=== PATIENT | female | born 1950 | race Caucasian/White ===

== ENCOUNTER 2017-01-11 22:56 | Observation (INO) | payer OTHER ==
[~2017-01-11] VITALS: Ht 170.2 cm; Wt 90.2 kg
[2017-01-11 23:15] LABS: HEMATOCRIT 40.7 % (37-47); MEAN CELL VOLUME 90.2 fL (80-100); MEAN CORPUSCULAR HEMOGLOBIN 30.6 pg (25-34); MEAN CORPUSCULAR HGB CONC 33.9 g/dl (32-36); MEAN PLATELET VOLUME 9.9 fL (7.4-10.4); PLATELET COUNT 296 K/uL (130-400); RED BLOOD COUNT 4.51 M/uL (4.2-5.4); WHITE BLOOD COUNT 7.61 K/uL (4.8-10.8)
--- NOTE | 2017-01-11 23:22 | EMERGENCY ROOM VISIT NOTE ---
History Report prepared by Prema: Hank Dimas Under the Supervision of: Dr. Audelia Ellison D.O. First contact with patient: 23:00 Stated Complaint: DIZZY/CARDIAC ASSESSMENT History of Present Illness The patient is a 66 year old female who presents to the Emergency Room via EMS with complaints of constant dizziness starting around 1800 today. Per the EMS, the patient was at the [facility] today, and she became very dizzy, and she was hypertensive. The patient has a history of arthritis and GERD, and she is from [place]. The patient is denying any chest pain or shortness of breath today or over the past few days. The patient states that she has not been drinking tonight, and she is currently a smoker. She states that her dad has a pacemaker, and her mom had a leaky valve, though there is no family history of heart attacks or catheterizations. The patient states that she has been having some chronic leg swelling due to foot surgery, and she has a history of cataract removal. Additionally, the patient states that she drove here from [place], and she has never had a history with dehydration or issues with her blood sugar. Source of History: patient, EMS Onset: 1800 tonight Position: other (global) Quality: other (dizziness) Timing: constant Associated Symptoms: No chest pain, No SOB Note: Associated symptoms: Hypertensive Review of Systems See HPI for pertinent positives & negatives. A total of 10 systems reviewed and were otherwise negative. Past Medical & Surgical Medical Problems: (1) Arthritis (2) Dizziness (3) GERD (gastroesophageal reflux disease) (4) ST segment changes on electrocardiogram Family History Heart valve abnormality Pacemaker Social History Marital Status: Housing Status: lives with family Occupation Status: retired Current/Historical Medications Scheduled PRN Lansoprazole (Prevacid), 15 MG PO DAILY PRN for GI Upset Naproxen (Naprosyn), 500 MG PO BID PRN for Pain Allergies Coded Allergies: No Known Allergies (Unverified , 01/12/17) Physical Exam Vital Signs Date Time Temp Pulse Resp B/P (MAP) Pulse Ox O2 Delivery O2 Flow Rate FiO2 01/12/17 00:11 71 18 177/59 96 Room Air 01/11/17 23:05 36.6 84 22 173/76 98 Room Air 01/11/17 23:05 Room Air 01/11/17 23:05 Room Air 01/11/17 23:05 78 Physical Exam HEENT: Head - normocephalic and atraumatic Pupils are equal, round, and reactive to light. Extraocular eye muscles are intact, and sclera are anicteric. There is no obvious lateral nystagmus. nose - moist nasal mucosa without discharge. Mouth - moist buccal mucosa. Oropharynx is nonerythematous and there is no tonsillar exudate or edema noted. Neck: Supple; no JVD, nuchal rigidity, cervical lymphadenopathy, or auscultated bruits. Heart: Regular rate and rhythm. There is a normal S1 and S2 with no murmurs, clicks, or gallops appreciated. Lungs: Clear to auscultation bilaterally with no wheezes, rales, or rhonchi. Abdomen: Soft, completely nontender, nondistended, with good bowel sounds. There are no palpable pulsatile masses or hepatosplenomegaly. There is no guarding, rigidity, or rebound noted. Extremities: Trace pedal edema bilaterally. No evidence of cyanosis or clubbing. There are easily palpable peripheral pulses. Skin: Slightly diaphoretic. Warm with good turgor and no rashes. Medical Decision & Procedures ER Provider Diagnostic Interpretation: X-ray results as stated below per interpretation by me: 2 view chest X-ray showed a questionable right sided pleural effusion. Radiology results as stated below per my review and the radiologist's interpretation: CT HEAD: No acute intracranial process. Minimal Sinus disease. Radiologist: Clare Gibson MD Laboratory Results 01/11/17 22:32 01/11/17 22:32 Test 01/11/17 22:32 01/11/17 23:15 Red Blood Count 4.51 M/uL (4.2-5.4) Mean Corpuscular Volume 90.2 fL (80-100) Mean Corpuscular Hemoglobin 30.6 pg (25-34) Mean Corpuscular Hemoglobin Concent 33.9 g/dl (32-36) RDW Standard Deviation 42.0 fL (36.4-46.3) RDW Coefficient of Variation 12.8 % (11.5-14.5) Mean Platelet Volume 9.9 fL (7.4-10.4) Anion Gap 5.0 mmol/L (3-11) Estimated GFR () 60.2 Estimated GFR (Non- 51.9 BUN/Creatinine Ratio 20.9 (10-20) Calcium Level 8.9 mg/dl (8.5-10.1) Total Bilirubin 0.5 mg/dl (0.2-1) Aspartate Amino Transf (AST/SGOT) 16 U/L (15-37) Alanine Aminotransferase (ALT/SGPT) 18 U/L (12-78) Alkaline Phosphatase 111 U/L (45-117) Total Creatine Kinase 113 U/L (26-192) Creatine Kinase MB 1.8 ng/ml (0.5-3.6) Creatine Kinase MB Ratio 1.6 (0-3.0) Troponin I < 0.015 ng/ml (0-0.045) Total Protein 7.6 gm/dl (6.4-8.2) Albumin 3.7 gm/dl (3.4-5.0) Globulin 3.9 gm/dl (2.5-4.0) Albumin/Globulin Ratio 0.9 (0.9-2) Thyroid Stimulating Hormone (TSH) 4.530 uIu/ml (0.300-4.500) Urine Color YELLOW Urine Appearance CLEAR (CLEAR) Urine pH 6.0 (4.5-7.5) Urine Specific [place] 1.017 (1.000-1.030) Urine Protein NEG (NEG) Urine Glucose (UA) NEG (NEG) Urine Ketones NEG (NEG) Urine Occult Blood TRACE (NEG) Urine Nitrite NEG (NEG) Urine Bilirubin NEG (NEG) Urine Urobilinogen NEG (NEG) Urine Leukocyte Esterase NEG (NEG) Urine WBC (Auto) 1-5 /hpf (0-5) Urine RBC (Auto) 5-10 /hpf (0-4) Urine Hyaline Casts (Auto) 0 /lpf (0-5) Urine Epithelial Cells (Auto) 20-30 /lpf (0-5) Urine Bacteria (Auto) NEG (NEG) Laboratory results per my review. ECG Indication: other (dizziness) Rate (beats per minute): 71 Rhythm: normal sinus Findings: ST depression (minimal in the inferior and lateral lead), no ectopy Change: Prehospital EKG: Indication: Dizziness. Normal sinus rhythm at [address] Segment depression inferiorly. No ectopy ED Course 2300: The prehospital EKG reviewed. patient was evaluated in room B10. A complete history and physical exam was performed. A twelve-lead EKG was performed here. Laboratory studies percent off. She was observing the manager monitoring and pulse oximeter. Her blood pressure did remain somewhat elevated. 0044: I reevaluated the patient, and she states that she is not dizzy anymore. I discussed her test results, and I told her that she should follow up as an outpatient for her thyroid and the blood in her urine. She is agreeable to the treatment plan. 0102: I discussed the patient's case with Jackie Bunch, and he is going to evaluate the patient for further treatment. Medical Decision The patient is a 66 year old female who presents to the ED with dizziness. Differential diagnosis includes vertigo, cardiac ischemia, dehydration, hypoglycemia, and cardiac dysrhythmia. Lab Results showed No leukocytosis, stable H&H, BUN of 23, creatinine of 1.1, glucose 131, TSH 4.5, normal LFTs, cardiac biomarkers are negative, and her urine had trace blood. The patient has sudden onset of dizziness while at the [facility] today. I was concerned as the patient had some ST segment depression inferiorly and laterally during this episode of hypertension and dizziness. Once the patient arrived here in the emergency department, the EKG changes had almost resolved entirely. This was concerning for ischemia. We have no previous EKG for comparison. I discussed the case with the [facility] hospitalist and they will evaluate for further management. Medication Reconcilliation Current Medication List: was personally reviewed by me Blood Pressure Screening Patient's blood pressure: Elevated blood pressure Will be managed by the hospitalist Consults Time Called: 49 Consulting Physician: Jackie Bunch Returned Call: 0102 I discussed the patient's case with Dr. Martinez, Jackie, and he is going to evaluate the patient for further treatment. Impression Primary Impression: Dizziness Additional Impressions: Acute electrocardiogram changes Uncontrolled hypertension Scribe Attestation The scribe's documentation has been prepared under my direction and personally reviewed by me in its entirety. I confirm that the note above accurately reflects all work, treatment, procedures, and medical decision making performed by me. Departure Information Dispostion Being Evaluated By Hospitalist Problem Qualifiers
[2017-01-11 23:34] LABS: ALT/SGPT 18 U/L (12-78); BLOOD UREA NITROGEN 23 mg/dl (7-18); BUN/CREATININE RATIO 20.9 (10-20); CALCIUM 8.9 mg/dl (8.5-10.1); CARBON DIOXIDE 29 mmol/L (21-32); CHLORIDE 106 mmol/L (98-107); GLUCOSE 131 mg/dl (70-99); SODIUM 140 mmol/L (136-145)
[2017-01-11 23:45] LABS: ALB/GLOB RATIO 0.9 (0.9-2); ALKALINE PHOSPHATASE 111 U/L (45-117); AST/SGOT 16 U/L (15-37); CKMB/CK RATIO 1.6 (0-3.0)
[2017-01-12] MEDS ORDERED: NAPR-1169 PO (00:08)
[2017-01-12 00:09] LABS: URINE APPEARANCE CLEAR (CLEAR); URINE BILIRUBIN NEG (NEG); URINE COLOR YELLOW; URINE EPITHELIAL CELL AUTO 20-30 /lpf (0-5); URINE NITRITE NEG (NEG); URINE SPECIFIC GRAVITY 1.017 (1.000-1.030); UROBILINOGEN NEG (NEG)
[2017-01-12] MEDS ORDERED: LANS15CA15 PO (00:09)
[2017-01-12 00:16] LABS: MANUAL MICROSCOPIC REQUIRED? NO; REVIEW REQ? NO
--- NOTE | 2017-01-12 01:17 | History and Physical ---
History & Physical Date & Time of Service: Jan 12, 2017 at 01:07 Chief Complaint: Dizzy/Cardiac Assessment Primary Care Physician: No Doctor, Assigned History of Present Illness Source: patient, family The patients presents to the ED brought in by daughter. The patient was at the [facility]. She noticed earlier in the evening feeling lightheaded and dizzy and unsteady on her feet. Daughter notes she appeared flushed and diaphoretic. She was sitting when she noted the symptoms come on and they worsened when she stook up. Sister had a BP machine on-site which read as "error", they went to EMS services who did and EKG showing inferior and lateral ST segment depression. As such she was brought to the ED by daughter. The patient denies chest pain, palpitations, resting or exertional dyspnea, lightheadedness/syncope, orthopnea, or lower extremity edema. There is no shortness of coughing or wheezing. The patient states that she is diligent about staying hydrated. She drank adequate this evening. The patient denies fevers, chills, night sweats. The patient denies nausea, vomiting diarrhea or constipation. This has never happened to her before. No history of CAD. No HTN, Diabetes or hyperlipidemia. Smokes 1 pack cigarettes per day. Drinks occasional glass of wine. 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 Father had a pacemaker. Mother had valvular heart. Family History Father had a pacemaker. Mother with valvular heart disease. Social History Smoking Status: Current Every Day Smoker Smokeless Tobacco Use: No Alcohol Use: occasionally Drug Use: none Marital Status: Housing status: lives alone Occupational Status: retired Immunizations History of Influenza Vaccine: Unknown History of Tetanus Vaccine?: Unknown History of Pneumococcal: Unknown History of Hepatitis B Vaccine: Unknown Multi-Drug Resistant Organisms History of MDRO: No Allergies Coded Allergies: No Known Allergies (Unverified , 01/12/17) Home Medications Scheduled PRN Lansoprazole (Prevacid), 15 MG PO DAILY PRN for GI Upset Naproxen (Naprosyn), 500 MG PO BID PRN for Pain Review of Systems A 10 point review of systems was negative unless stated above. Physical Exam Vital Signs Date Time Temp Pulse Resp B/P (MAP) Pulse Ox O2 Delivery O2 Flow Rate FiO2 01/12/17 00:11 71 18 177/59 96 Room Air 01/11/17 23:05 36.6 84 22 173/76 98 Room Air 01/11/17 23:05 Room Air 01/11/17 23:05 Room Air 01/11/17 23:05 78 General Appearance: WD/WN, no apparent distress Head: normocephalic, atraumatic Eyes: normal inspection, EOMI ENT: hearing grossly normal, pharynx normal Neck: supple, no adenopathy, no JVD Respiratory/Chest: lungs clear, no respiratory distress Cardiovascular: regular rate, rhythm, no gallop, no murmur Abdomen/GI: normal bowel sounds, non tender, soft Back: no CVA tenderness, no muscle spasm Extremities/Musculoskelatal: no calf tenderness, no pedal edema, + pertinent finding (minimal ROM in ankles) Neurologic/Psych: alert, normal mood/affect, oriented x 3 Skin: normal color, warm/dry, no rash Lymphatic: no adenopathy Diagnostics Laboratory Results Results Past 24 Hours Test 01/11/17 22:32 01/11/17 23:15 Range/Units White Blood Count 7.61 4.8-10.8 K/uL Red Blood Count 4.51 4.2-5.4 M/uL Hemoglobin 13.8 12.0-16.0 g/dL Hematocrit 40.7 37-47 % Mean Corpuscular Volume 90.2 80-100 fL Mean Corpuscular Hemoglobin 30.6 25-34 pg Mean Corpuscular Hemoglobin Concent 33.9 32-36 g/dl RDW Standard Deviation 42.0 36.4-46.3 fL RDW Coefficient of Variation 12.8 11.5-14.5 % Platelet Count 296 130-400 K/uL Mean Platelet Volume 9.9 7.4-10.4 fL Sodium Level 140 136-145 mmol/L Potassium Level 4.0 3.5-5.1 mmol/L Chloride Level 106 98-107 mmol/L Carbon Dioxide Level 29 21-32 mmol/L Anion Gap 5.0 3-11 mmol/L Blood Urea Nitrogen 23 7-18 mg/dl Creatinine 1.10 0.60-1.20 mg/dl Estimated GFR () 60.2 Estimated GFR (Non- 51.9 BUN/Creatinine Ratio 20.9 10-20 Random Glucose 131 70-99 mg/dl Calcium Level 8.9 8.5-10.1 mg/dl Total Bilirubin 0.5 0.2-1 mg/dl Aspartate Amino Transf (AST/SGOT) 16 15-37 U/L Alanine Aminotransferase (ALT/SGPT) 18 12-78 U/L Alkaline Phosphatase 111 45-117 U/L Total Creatine Kinase 113 26-192 U/L Creatine Kinase MB 1.8 0.5-3.6 ng/ml Creatine Kinase MB Ratio 1.6 0-3.0 Troponin I < 0.015 0-0.045 ng/ml Total Protein 7.6 6.4-8.2 gm/dl Albumin 3.7 3.4-5.0 gm/dl Globulin 3.9 2.5-4.0 gm/dl Albumin/Globulin Ratio 0.9 0.9-2 Thyroid Stimulating Hormone (TSH) 4.530 0.300-4.500 uIu/ml Urine Color YELLOW Urine Appearance CLEAR CLEAR Urine pH 6.0 4.5-7.5 Urine Specific [place] 1.017 1.000-1.030 Urine Protein NEG NEG Urine Glucose (UA) NEG NEG Urine Ketones NEG NEG Urine Occult Blood TRACE NEG Urine Nitrite NEG NEG Urine Bilirubin NEG NEG Urine Urobilinogen NEG NEG Urine Leukocyte Esterase NEG NEG Urine WBC (Auto) 1-5 0-5 /hpf Urine RBC (Auto) 5-10 0-4 /hpf Urine Hyaline Casts (Auto) 0 0-5 /lpf Urine Epithelial Cells (Auto) 20-30 0-5 /lpf Urine Bacteria (Auto) NEG NEG CXR normal EKG EMS EKG showing inferior/lateral ST segment depression There is no previous EKG for comparison Impression Assessment and Plan 66 year old with no known history of CAD, presenting with lightheadedness and diaphoresis. Her risk factors are age and smoking. She has not had screening for other co-morbid conditions. Our plan for her is as follows Inferior/Later ST segment depression - Noted by EMS; EKG. Changes resolved on arrival to ED - Troponin x 1 negative; trend q 6 hours - Monitor in telemetry - EKG and Nitro SL with chest pain - Will order Dobutamine stress test as patient is unable to walk briskly due to ankle issues - Screen for co-morbidities: HbA1c and fasting lipid profile Lightheadedness/Dizziness - Check orthostatics with vital signs - Will re-hydrate gently overnight Tobacco Abuse - Nicotine Patch - Smoking Cessation Educator DVT Prophylaxis - SCD KneePRISCILLA - Lovenox 40 mg s.c. daily Code Status - Level I Full Code Disposition - Telemetry - OT and PT evaluations Attending Addendum: I have physically seen and examined this patient, have supervised the medical residents activities, and agree with the H&P as noted above with the following exceptions as noted. The patient reports that while sitting at the range here today, when she went to stand she became very dizzy, and this dizziness persisted intermittently throughout the day. She was then taken to EMS services there, where an EKG was performed showing minor inferior lateral ST segment changes, and her daughter then brought her to the emergency department for assessment. The patient's only symptom is that of dizziness. The patient denies chest pain, palpitations, shortness of breath, cough, lower extremity swelling, vision change, hearing change, sore throat, fevers, chills, sweats, weight change, fatigue, nausea, vomiting, diarrhea or constipation, abdominal pain, pelvic pain, blood in urine or stool, dysuria, urinary frequency or urgency, headache, memory loss, rash, abnormal bruising or bleeding, imbalance, focal or generalized weakness, numbness or tingling in arms or legs, generalized arthralgias or myalgias, back or neck pain, night sweats. The review of systems is otherwise negative other than for that already noted above, and at least 10 systems have been reviewed. The patient is awake, well-developed and adequately nourished, alert and oriented 3, normocephalic and atraumatic, lying in bed and in no acute distress. HEENT--PERRL, EOMI, mucous membranes and oropharynx dry. Neck--supple, no JVD or bruits, thyroid normal, trachea midline, no adenopathy. Heart--normal S1 and S2, no extra beats, no murmurs, rubs or gallops. Lungs--clear bilaterally with good air movement, no respiratory distress, no accessory muscle use. Abdomen--normal bowel sounds and soft, nontender and nondistended, no hernias or masses, no organomegaly. Extremities--no cyanosis, clubbing or edema. There are good distal pulses b/l. Dermatologic--normal skin turgor, normal color, warm and dry, no abnormal lymph nodes, no rash. Neurologic--cranial nerves II through XII grossly intact, motor and sensory examination normal. Rheumatologic--decreased range of motion of ankles due to previous surgery. Psychiatric--normal affect. Assessment and Plan: 1. Dizziness/nonspecific ST- T changes on EKG--The patient will be admitted to telemetry for serial cardiac enzymes, cardiac rhythm monitoring and a 2-D echocardiogram with Dopplers. We ordered a CT of the head without contrast, which showed minimal sinus disease. Check a fasting lipid profile and hemoglobin A1c. Start aspirin 81 mg chewable daily. If the above workup is negative, she should have a dobutamine stress echo prior to discharge. Place on IV fluids normal saline with KCl 20 mEq 100 mils per hour to reverse mild dehydration. Encouraged tobacco cessation, and we'll place on nicotine patch. Level of Care Telemetry Advanced Directives Existing Advance Directive: No Existing Living Will: No Existing Power of Cleaner Greaser: No Resuscitation Status FULL RESUSCITATION VTE Prophylaxis Risk Level: Low Given or contraindicated: Enoxaparin (Lovenox)SQ Social Service Consult None Apply
[2017-01-12] MEDS ORDERED: ALUMINUM/MAGNESIUM/SIMETH (MAALOX MAX) 30 ML UDC PO PRN (01:30)
[2017-01-12] MEDS ORDERED: ONDANSETRON INJ 2 MG/ML 2 ML VIAL IV PRN (01:30)
[2017-01-12] MEDS ORDERED: POLYETHYLENE (MIRALAX) 17 GM PACK PO PRN (01:30)
[2017-01-12] MEDS ORDERED: NITROGLYCERIN 0.4 MG SL PER TAB CHARGE SL PRN (01:30)
[2017-01-12] MEDS ORDERED: MAGNESIUM HYDROXIDE SUSP 30 ML UDC PO PRN (01:30)
[2017-01-12] MEDS ORDERED: MoRPHine SULFATE 2 MG/ML CARP IV PRN (01:30)
[2017-01-12] MEDS ORDERED: ACETAMINOPHEN 325 MG TAB PO PRN (01:30)
[2017-01-12] MEDS ORDERED: PANTOprazole SOD 40 MG TAB PO PRN (02:00)
[2017-01-12 02:53] VITALS: BP 170/87; PULSE 71; TEMP 36.7; O2SAT 95; Ht 170.2 cm; Wt 90.2 kg
[2017-01-12] MEDS ORDERED: IV FLUIDS COMPLETED PRN (03:15)
[2017-01-12] MEDS: SODIUM CHLORIDE 0.9% 1000ML 1,000 ML IV SCH ×2 (03:18→11:00)
[2017-01-12 06:56] LABS: ESTIMATED AVERAGE GLUCOSE 114 mg/dl; HA1C FLAG Normal (Normal)
--- NOTE | 2017-01-12 07:13 | DIAGNOSTIC IMAGING REPORT ---
CT SCAN OF THE BRAIN WITHOUT IV CONTRAST CLINICAL HISTORY: Dizziness. COMPARISON STUDY: No priors. TECHNIQUE: Unenhanced axial CT scan of the brain is performed from the vertex to the skull base. CT DOSE: 537.48 mGy.cm FINDINGS: Brain parenchyma: There is minimal periventricular microangiopathic disease. A chronic lacunar infarct is noted in the left basal ganglia. There is no hemorrhage, mass effect, or evidence of acute territorial ischemia by CT criteria. [place]-white matter is preserved. No extra-axial fluid collection is seen. Ventricles, sulci, cisterns: Normal in configuration. Intracranial vasculature: There is atherosclerotic calcification of the cavernous carotid arteries. Calvarium: Unremarkable. Sinuses and mastoids: The visualized paranasal sinuses are clear. The mastoid air cells are well pneumatized. Orbits: The bony orbits are grossly intact. There are bilateral ocular lens implants. IMPRESSION: There is no hemorrhage, mass effect, or evidence of acute territorial ischemia by CT criteria. Electronically signed by: Kyler Stark M.D. 01/12/2017 7:11 AM Dictated Date/Time: 01/12/2017 7:09 AM
[2017-01-12 07:16] VITALS: BP 137/81; PULSE 68; TEMP 36.6; O2SAT 95
--- NOTE | 2017-01-12 07:38 | DIAGNOSTIC IMAGING REPORT ---
TWO VIEW CHEST CLINICAL HISTORY: Dizziness. FINDINGS: PA and lateral chest radiographs are obtained. No prior studies are available for comparison at the time of dictation. The cardiomediastinal silhouette is unremarkable. The lungs are hyperinflated and hyperlucent with flattening the diaphragm and increased retrosternal clear space. The appearance suggests obstructive physiology. Nonspecific interstitial thickening is noted. No airspace consolidation or pleural effusion is identified. There is no pneumothorax. The skeletal structures are osteopenic. Degenerative change is noted throughout the thoracic spine. IMPRESSION: Findings suggest obstructive physiology. There is no airspace consolidation or pleural effusion. Electronically signed by: Kyler Stark M.D. 01/12/2017 7:37 AM Dictated Date/Time: 01/12/2017 7:36 AM
[2017-01-12 07:40] LABS: INR 0.9 (0.9-1.1)
[2017-01-12 07:56] LABS: BLOOD UREA NITROGEN 19 mg/dl (7-18); BUN/CREATININE RATIO 21.9 (10-20); CALCIUM 8.9 mg/dl (8.5-10.1); CARBON DIOXIDE 29 mmol/L (21-32); CHLORIDE 111 mmol/L (98-107); CREATININE 0.85 mg/dl (0.60-1.20); GLUCOSE 105 mg/dl (70-99); POTASSIUM 3.8 mmol/L (3.5-5.1); SODIUM 143 mmol/L (136-145)
[2017-01-12] MEDS ORDERED: PNEUMOCOCCAL POLYSACCHARIDES 25 MCG/0.5 ML VIAL/SYR IM. ONE (08:00)
[2017-01-12] MEDS ORDERED: PNEUMOCOCCAL ADMINISTRATION CHARGE ONE (08:00)
[2017-01-12 08:01] LABS: CHOLESTEROL 186 mg/dl (0-200); CHOLESTEROL/HDL RATIO 4.9; CKMB/CK RATIO 1.8 (0-3.0); HDL CHOLESTEROL 38 mg/dl; LDL CHOLESTEROL CALCULATED 124 mg/dl; TRIGLYCERIDES 119 mg/dl (0-150); VERY LOW DENSITY LIPOPROT CALC 24 mg/dl
[2017-01-12] MEDS ORDERED: ENOXAPARIN 40 MG/0.4 ML SYR SC SCH (09:00)
[2017-01-12 11:47] VITALS: BP 144/79; PULSE 73; TEMP 36.9; O2SAT 96
[2017-01-12] MEDS ORDERED: DOBUTamine HCL 12.5 MG/ML 20 ML VIAL ONE (12:30)
[2017-01-12] MEDS ORDERED: ATROPINE SULFATE 0.1 MG/ML 5ML SYR ONE (12:30)
[2017-01-12] MEDS ORDERED: METOPROLOL TARTRATE 1 MG/ML VIAL ONE (12:30)
[2017-01-12 13:57] LABS: CKMB/CK RATIO 1.7 (0-3.0)
--- NOTE | 2017-01-12 14:30 | Discharge Instructions ---
Discharge Instructions Date of Service Jan 12, 2017. Admission Reason for Admission: Dizziness, St Segment Changes On Electrocardiogram Discharge Discharge Diagnosis / Problem: Dizziness with abnormal EKG, rule out for acute coronary syndrome Discharge Goals Goal(s): Improve function Activity Recommendations Activity Limitations: resume your previous activity . Instructions / Follow-Up Instructions / Follow-Up Rayshawn Carmen were admitted to [facility] to investigate potential causes for dizzyness you experienced yesterday. The workup we did was centered around making sure your heart is healthy. We did an EKG, took some blood test and did an Echocardiogram. All our test were normal. Other causes for dizzyness could be dehydration, which is possible in your case. I would advice you to follow up with you primary care doctor regarding your blood pressure. Throughout your visit, you blood pressure was high. High blood pressure is what we call a silent killer. You may not have symptoms, but the effects of over time can cause some problems and put you at high risk for heart attacks and stroke. Considering your family history, you are already at a slightly higher risk for cardiac complications. Current Hospital Diet Patient's current hospital diet: AHA Diet (Heart Healthy) Discharge Diet Recommended Diet: Regular Diet, AHA Diet (Heart Healthy) Pending Studies Studies pending at discharge: no Laboratory Results Hemoglobin A1c Test 01/11/17 22:32 Range/Units Estimated Average Glucose 114 mg/dl Hemoglobin A1c 5.6 4.5-5.6 % Lipid Panel Test 01/12/17 06:39 Range/Units Triglycerides Level 119 0-150 mg/dl Cholesterol Level 186 0-200 mg/dl HDL Cholesterol 38 mg/dl Cholesterol/HDL Ratio 4.9 LDL Cholesterol, Calculated 124 mg/dl Medical Emergencies . Who to Call and When: Medical Emergencies: If at any time you feel your situation is an emergency, please call 911 immediately. . Non-Emergent Contact Non-Emergency issues call your: Primary Care Provider . . "Provider Documentation" section prepared by Loyd Salgado. . VTE Core Measure Inpt VTE Proph given/why not?: Enoxaparin (Lovenox)SQ
[2017-01-12 14:45] VITALS: BP 144/79; PULSE 73; TEMP 36.9; O2SAT 96
--- NOTE | 2017-01-12 15:25 | DOBUTAMINE ECHO ---
*NOTICE TO RECEIVING LIBERTARIAN AGENCY This information is strictly Confidential and protected under [place] law. [place] law prohibits you from making any further disclosure of this information unless further disclosure is expressly permitted by the written consent of the person to whom it pertains or is authorized by law. A general authorization for the release of medical or other information is not sufficient for this purpose. Hospital accepts no responsibility if the information is made available to any other person, INCLUDING THE PATIENT. Interpretation Summary * Name: SAUL MARTINS Study Date: 01/12/2017 11:42 AM BP: 160/78 mmHg * Patient Location: C.2T\S\S230\S\2 HR: 101 * : 1950 (M/d/yyyy) Gender: Female Height: 67 in * Age: 66 yrs Ethnicity: CA Weight: 203 lb * Ordering Physician: Sherif Martinez * Referring Physician: Self, Referred * Performed By: Dina Capone RDCS * * Reason For Study: Dizziness with transient ST segment depression anterior/laterally * BSA: 2.0 m2 * -- Conclusions -- * 1. Negative dobutamine stress echocardiogram at 98 percent of the maximum predicted heart rate. * 2. No dobutamine induced chest. * 3. False positive EKG response. * 4. Baseline echocardiogram notes normal left resolves function and mild left hypertrophy. Procedure Details * DOBUTAMINE ECHO, CPT#[id number] * ECHO DOPPLER, CPT #[id number] * ECHO COLOR FLOW, CPT #[id number] Left Ventricle * The left ventricle is normal in size. * There is mild concentric left ventricular hypertrophy. * Ejection Fraction = 55-60%. * Left ventricular systolic function is normal. * Resting wall motion: Normal. Stress wall motion: Appropriate increase in Left ventricular systolic function and decrease in cavity size. No stress induced segmental wall motion abnormalities. Right Ventricle * The right ventricle is grossly normal size. * The right ventricular systolic function is normal as assessed by tricuspid annular plane systolic excursion (TAPSE) (normal >1.5 cm). Atria * The left atrial size is normal. * Right atrial size is normal. * No ASD detected; PFO is not assessed. Mitral Valve * The mitral valve is grossly normal. * There is no mitral valve stenosis. * Significant mitral regurgitation is absent. Tricuspid Valve * The tricuspid valve is not well visualized, but is grossly normal. * Significant tricuspid regurgitation is absent. Aortic Valve * The aortic valve is not well visualized. * The aortic valve opens well. * No aortic regurgitation is present. Pulmonic Valve * The pulmonary valve is not well seen, but the Doppler examination is normal without significant regurgitation or stenosis. Great Vessels * The aortic root is normal size. Pericardium * There is no pericardial effusion. Stress Parameters * Normal baseline electrocardiogram. * There was a maximum 1.5mm ST segment depression. * The stress portion of this study was personally supervised by the undersigned interpreting physician. * Rest heart rate was '101' BPM. * Rest blood pressure was '160/78' * Maximum heart rate achieved was 150 bpm. * Maximum heart rate was 98 % of maximum age-predicted heart rate. * Maximum blood pressure was '195/57' * Maximum Dobutamine infusion rate was '20' mcg/kg/min. * A total of 0.5 mg of intravenous Atropine was used to supplement Dobutamine for heart rate response. * Dobutamine infusion was terminated due to achieving target heart rate * A total of 10 mg of IV Metoprolol was administered to reverse Dobutamine-induced tachycardia. * The patient did not exhibit any symptoms during drug infusion. Left Ventricular Diastolic Function * Diastolic dysfunction, Grade II (pseudonormalization pattern). MMode 2D Measurements and Calculations IVSd 0.97 cm LVIDd 3.7 cm LVIDs 2.6 cm LVPWd 1.2 cm IVS/LVPW 0.84 FS 29.1 % EDV(Teich) 59.0 ml ESV(Teich) 25.6 ml EF(Teich) 56.6 % EDV(cubed) 51.6 ml ESV(cubed) 18.4 ml EF(cubed) 64.3 % LV mass(C)d 123.9 grams LV mass(C)dI 60.9 grams/m\S\2 SV(Teich) 33.4 ml SI(Teich) 16.4 ml/m\S\2 SV(cubed) 33.2 ml SI(cubed) 16.3 ml/m\S\2 Ao root diam 2.7 cm Ao root area 5.8 cm\S\2 ACS 1.9 cm LA dimension 3.1 cm LA/Ao 1.1 LVOT diam 1.9 cm LVOT area 2.8 cm\S\2 LVAd ap4 22.7 cm\S\2 LVLd ap4 7.0 cm EDV(MOD-sp4) 60.2 ml EDV(sp4-el) 62.7 ml LVAs ap4 13.4 cm\S\2 LVLs ap4 5.7 cm ESV(MOD-sp4) 26.4 ml ESV(sp4-el) 26.7 ml EF(MOD-sp4) 56.1 % EF(sp4-el) 57.3 % LVAd ap2 17.8 cm\S\2 LVLd ap2 6.6 cm EDV(MOD-sp2) 39.2 ml EDV(sp2-el) 40.7 ml LVAs ap2 10.2 cm\S\2 LVLs ap2 5.4 cm ESV(MOD-sp2) 15.8 ml ESV(sp2-el) 16.2 ml EF(MOD-sp2) 59.5 % EF(sp2-el) 60.3 % LVLd %diff -4.87 % EDV(MOD-bp) 49.7 ml LVLs %diff -5.73 % ESV(MOD-bp) 21.0 ml EF(MOD-bp) 57.7 % SV(MOD-sp4) 33.8 ml SI(MOD-sp4) 16.6 ml/m\S\2 SV(MOD-sp2) 23.3 ml SI(MOD-sp2) 11.5 ml/m\S\2 SV(MOD-bp) 28.7 ml SI(MOD-bp) 14.1 ml/m\S\2 SV(sp4-el) 36.0 ml SI(sp4-el) 17.7 ml/m\S\2 SV(sp2-el) 24.6 ml SI(sp2-el) 12.1 ml/m\S\2 Doppler Measurements and Calculations MV E max vero 93.8 cm/sec MV A max vero 79.3 cm/sec MV E/A 1.2 MV dec time 0.29 sec Ao V2 max 132.9 cm/sec Ao max PG 7.1 mmHg Ao max PG (full) 3.4 mmHg LEANNE(V,A) 2.0 cm\S\2 LEANNE(V,D) 2.0 cm\S\2 LV V1 max PG 3.6 mmHg LV V1 max 95.4 cm/sec PA V2 max 87.1 cm/sec PA max PG 3.0 mmHg PA acc slope 534.2 cm/sec\S\2 PA acc time 0.13 sec PA pr(Accel) 18.6 mmHg
--- NOTE | 2017-01-12 16:47 | Discharge Summary ---
Discharge Summary Date of Service Jan 12, 2017. (Loyd Salgado M.D.) Discharge Summary Admission Date: Jan 12, 2017 at 01:53 Discharge Date: Jan 12, 2017 Discharge Disposition: Home Principal Diagnosis: Dizzyness with abnormal EKG Immunizations: Have You Had Influenza Vaccine: Unknown History of Tetanus Vaccine?: Unknown History of Pneumococcal: Unknown History of Hepatitis B Vaccine: Unknown (Loyd Salgado M.D.) Medication Reconciliation Continued Medications: Lansoprazole (Prevacid) 15 Mg Cap 15 MG PO DAILY PRN for GI Upset Naproxen (Naprosyn) 500 Mg Tab 500 MG PO BID PRN for Pain, TAB Discharge Exam Review of Systems: Constitutional: No fever, No chills Respiratory: No cough, No sputum, No wheezing, No shortness of breath, No dyspnea on exertion, No dyspnea at rest Cardiovascular: No chest pain, No orthopnea, No PND, No edema Abdomen: No pain, No nausea, No vomiting, No diarrhea, No constipation Musculoskeletal: No swelling, No calf pain Genitourinary - Female: No dysuria, No urinary frequency Physical Exam: General Appearance: WD/WN, no apparent distress Neck: supple, no adenopathy Respiratory/Chest: chest non-tender, lungs clear, normal breath sounds, no respiratory distress, no accessory muscle use Cardiovascular: regular rate, rhythm, no edema, no gallop, no JVD, no murmur , normal peripheral pulses Abdomen / GI: normal bowel sounds, non tender, soft, no organomegaly, no pulsatile mass Neurologic/Psychiatric: alert, normal mood/affect, oriented x 3 Skin: normal color, warm/dry, no rash (Loyd Salgado M.D.) Review of Systems: Constitutional: No fever Respiratory: No shortness of breath Cardiovascular: No chest pain Abdomen: No pain, No nausea, No vomiting Physical Exam: General Appearance: no apparent distress Respiratory/Chest: lungs clear, no respiratory distress Cardiovascular: regular rate, rhythm Abdomen / GI: normal bowel sounds, non tender, soft Neurologic/Psychiatric: alert, oriented x 3 (Angela Rojas M.D.) Hospital Course Ms. Cobb was admitted to [facility] for dizzyness with an abnormal EKG. Prior to being admitted the patient was at an outdoor fair when she began to feel lightheaded and dizzy, feeling like she was going to pass out. Onsite EMS took an EKG showing inferior and lateral ST depression which prompted them to take her the ED. The pt denied feeling any chest pain. Once in the hospital rule-out for ACS commenced: repeat EKG, troponin and dobutamine echo were performed. Troponin x3 were negative and EKG showed NSR. The patient was kept overnight and dobutamine ECHO was performed in the morning. Dobutamine ECHO was elected due to problems with patients' ankles. Cardiology determined the Echo to be normal. The pt was discharged on 01/12/2017 following test to rule-out ACS. Of note: the pt did have elevated blood pressure throughout her hospitalization. The patient should follow up with her primary care physician in [place] to determine if she has hypertension and needs to be put on meds. Pt has a family history of cardiac issues: father had a pacemaker and mother had a valve replacement. Pt is also a smoker. Total Time Spent: Greater than 30 minutes This includes examination of the patient, discharge planning, medication reconciliation, and communication with other providers. (Loyd Salgado M.D.) Resident Physician Supervision Note: I was present with Dr. Salgado in bedside. I verified the gaston history and physical, reviewed labs and image studies, discussed the case with the resident and agree with the findings and care plan. Total Time Spent: Greater than 30 minutes (35) (Angela Rojas M.D.) Discharge Instructions Please refer to the electronic Patient Visit Report (Discharge Instructions) for additional information. (Loyd Salgado M.D.)
--- NOTE | 2017-01-18 17:06 | EDITING REQUIRED CODING QUERY ---
SUPPORTING DIAGNOSIS NEEDED A supporting diagnosis is required for the test/procedure performed on this patient in order for us to be reimbursed by the patient's insurance. Please provide a supporting diagnosis for the following test/procedure listed below next to the test name along with your signature. *If there is no additional diagnosis for this patient that would support the following test/procedure please document that below next to the test/procedure. Test(s)/Procedure(s) that require a supporting diagnosis: * HEMOGLOBIN A1C DIAGNOSIS: Dizziness, r/o TIA Provider Signature: Angela Rojas Date: ___01/20/17____ Thank you Olimpia [employer] Information Management Once completed, please kindly fax back to [phone] For questions please call [phone]
== END 2017-01-12 16:04 | disposition home or self-care (01) ==
LOC: EDBD 22:56 → C.EDB 22:58 → C.2T 01-12 01:53 → ENRESERV 01-12 02:15
PROVIDERS: ADMIT Student in an Organized Health Care Education/Training Program; ATTEND Family Medicine
DX: R42 Dizziness and giddiness (principal); R94.31 Abnormal electrocardiogram [ECG] [EKG]; I10 Essential (primary) hypertension